=== PATIENT | male | born 1960 | race Asian ===

== ENCOUNTER 2021-06-15 16:24 | Emergency (ER) | payer OTHER ==
[~2021-06-15] VITALS: Ht 165.1 cm; Wt 68.0 kg
== END 2021-06-15 18:55 | disposition home or self-care (01) ==
LOC: FSED 16:37
DX: R06.02 Shortness of breath (principal); R07.0 Pain in throat
CPT/HCPCS: 71046; 80053; 82553; 83880; 84484; 85025; 93005; 99284